=== PATIENT | male | born 1960 | race African-American/Black ===

== ENCOUNTER 2020-03-13 14:29 | Emergency (ER) | payer MEDICAID ==
[~2020-03-13] VITALS: Ht 182.9 cm; Wt 84.0 kg
[2020-03-13 14:34] VITALS: BP 0/0
== END 2020-03-13 17:59 | disposition expired ==
LOC: EMS 14:31 → EDBD 14:31 → EMS 17:59
DX: I46.9 Cardiac arrest, cause unspecified (principal); J44.9 Chronic obstructive pulmonary disease, unspecified; Z20.828 Contact with and (suspected) exposure to other viral communicable diseases
CPT/HCPCS: 92950; 99285; U0003; Z7502